=== PATIENT | female | born 1985 | race Caucasian/White ===

== ENCOUNTER → 2017-09-29 | Emergency (ER) | payer OTHER ==
[~2017-09-29] VITALS: Ht 160 cm; Wt 65.8 kg
[~2017-09-29] MED LIST: AMOX1TAB12 PO; INTESTINEX680 MG PO; KETO10TA2 PO
== END | disposition home or self-care (01) ==
LOC: ER 14:00
DX: R10.32 Left lower quadrant pain (principal); R10.2 Pelvic and perineal pain